=== PATIENT | female | born 1960 | race Caucasian/White ===

== ENCOUNTER 2018-11-09 14:53 | Day surgery (SDC) | payer OTHER, MEDICARE, SELFPAY ==
[2018-11-08 14:31] VITALS: BMI 34.7
--- NOTE | 2018-11-09 | PATH_ITS ---
[facility] Accession Number: [id number] . 01 Material submitted: . toe - RIGHT 5TH TOE . 01 Diagnosis: Right Fifth Toe, Amputation: Actively inflamed chronic ulcer of skin. Focal woven bone associated with marrow fibrosis and chronic inflammation, suggestive of chronic osteomyelitis. Skin, soft tissue, and bone margins of resection viable. MRV 11/14/2018 1654 Local . 01 Electronically signed: . Ketan Ellsworth MD, Pathologist NPI- [id number] . 01 Gross description: . Received in formalin, labeled right fifth toe, is a resected toe (4.0 cm AP, 2.5 cm ML, 1.5 cm SI). The toenail is present. An ulcerated irregular area (0.6 x 0.5 cm) is identified on the central posterosuperior aspect 0.2 cm from the superior skin and soft tissue resection margin. The surrounding skin is carrillo-white and focally flaky. The underlying bone is partially soft but cannot be sliced all the way through with a scalpel. The bone resection margin is inked purple, the superior skin and soft tissue margin is inked black, and the inferior is orange. Section code: (A1) skin and soft tissue resection margins, claims representative; (A2) bone resection margin en face; (A3) ulcerated irregular area, claims representative; (A4) bone underlying irregular area, claims representative serial sections. Note: The bone sections have been decalcified. ([id number]) /MRV 11/11/2018 1957 Local . 01 Pathologist provided ICD-10: M86.9 . 01 CPT . 397648, 506751 Performed at: [address] [address], [place], [place] [id number] MD Kehinde Villaseñor MD Phone: [phone]
[2018-11-09 15:16] VITALS: BMI 32.8
[2018-11-09 15:31] VITALS: BP 142/94; PULSE 96; RESP 20; TEMP 35.9; O2SAT 96
[2018-11-09] MEDS: LACTATED RINGERS 1,000 ML 42 ML IV (15:45)
--- NOTE | 2018-11-09 15:53 | SUR.PREOP ---
Due to draining wound with bandage did not do chloraprep wash to surgical area.
--- NOTE | 2018-11-09 17:38 | PM.PREOP ---
Pre-operative Note Interval Note History & Physical reviewed/Exam performed by Physician: Yes Changes to H&P: No
--- NOTE | 2018-11-09 17:44 | PM.OP.1 ---
Operative Date/Time/Diagnoses Date of procedure: 11/09/18 Time of procedure: 18:00 Pre-op diagnosis: Osteomyelitis right 5th toe with ulceration Diabetes type 2 Post-op diagnosis: same Procedure & Clinicians Procedure: 1. Right 5th toe amputation through metatarsophalangeal joint Same procedure as scheduled: Yes Indications: The patient is a 57-year-old female with multiple medical comorbidities she has a long history of ulcerative wounds to her right foot starting in March of 2017. She was treated by would be wound care and home health for many months and finally got all of her wounds to heal by about May or June although she did have an MRI at that time that suggested osteomyelitis in the 4th and 5th toes. Significantly 2 weeks ago the patient was in [facility] for bowel obstructions been several weeks ago with IV antibiotics. Following discharge home the patient noticed an acute swelling pain and formation of a ulceration and then Prolene and drainage from her 5th toe on the right foot. This is gotten increasingly worse over the last week and half for so. She saw her primary care doctor who put her on Cipro oral and referred for a foot surgeon orthopedic consultation. New x-rays were taken at the office that show destruction of the PIP joint of the right 5th toe as well as purulence drainage from a dorsal wound that encompasses tissue over most of the proximal phalanx. Due to the extension of the soft tissue involvement and what appears to be periosteal reaction along the proximal phalanx the patient was recommended for amputation of the 5th toe through the MTP joint. We also discussed a partial proximal failed amputation however this has a higher risk of leaving recurrent infection. The patient understands and agrees with the plan. The risks benefits and alternatives to surgery were discussed with the patient in detail. T The risks of surgery include but are not limited to infection, malunion, nonunion, persistence of pain, damage to nerves and blood vessels, posttraumatic arthritis, DVT, PE, cardiopulmonary complications and . The patient expressed a thorough understanding of the risks and benefits of surgery and has elected to proceed. Consent was signed in the office today. Surgeon: Nisreen Shook Click Yes if Unassisted: Yes Anesthesia Type: MAC +/- and Local Operative Notes Findings: Right 5th toe with erythema over the entire toe and down towards the metatarsophalangeal junction. No ascending erythema past this point. There is a fluctuant abscess over the dorsal of the proximal phalanx with purulence expressed. A tennis racquet type incision was taken down centered over the base of the proximal phalanx and the 5th toe was removed in its entirety of note there was some soft bone towards the proximal aspect of the proximal phalanx. This was divided and sent for culture and pathology. Closure Type: primary Specimen(s): other (Tissue and bone for culture and pathology) Estimated Blood Loss (mL): 5 Blood products transfused: none Tourniquet time (min): 0 Procedure in detail: Patient was seen in the preoperative area the site of surgery was marked and informed consent confirmed. The patient was then brought back to the operating room by the anesthesia team and placed supine on the table. All bony prominences were well padded. A nonsterile calf tourniquet was placed but not elevated. The right lower extremity was prepped and draped in the standard sterile fashion. Formal time-out procedure was performed confirming the patient's side and site of surgery and administration of antibiotics. Attention was turned to the right foot the right 5th toe was erythematous with a draining ulceration over the proximal phalanx. Mini fluoroscopy was brought in and the location of the ulceration did correspond to the base of the proximal phalanx fairly proximal to the bony destruction therefore decision was made to go ahead with the MTP disarticulation for the best chance of eradicating the infection. The tourniquet was not inflated. Tennis racquet incision was drawn out over the 5th toe. This was then incised through the skin and soft tissue sharply with the knife down to the level of the bone. The proximal phalanx was then freed up proximally and the entire toe specimen was removed and then divided for culture and pathology. The PIP joint and distal proximal phalanx bone was destroyed and soft as well as some softening more proximally and the proximal phalanx as well. Next attention was turned to the wound this time this was irrigated with saline with antibiotic Gent mixed and followed by plain saline. Gloves were changed and new instruments were used to cut the extensor and flexor tendons short allow these to retract as well as a cut and cauterized the neurovascular bundles. The metatarsal head was inspected and was intact. At this point 3 0 PDS suture was used for deep closure followed by 3 O nylon in the skin. The wound closed up nicely. Approximately 16 cc of 0.25% Marcaine with epinephrine were used for local anesthesia. A dressing was placed with Xeroform gauze Kerlix and a Coban wrap and the patient was placed into a postoperative shoe. The drapes removed and the patient was woken from anesthesia and taken to recovery room in good condition. There no immediate complications in this procedure. Complications: none Post-operative Condition: stable Disposition: PACU Plan for aftercare: Patient will be flatfoot or heel weight-bearing in the postoperative shoe on the right side. She will elevate and offload as much as possible to help with her healing. Discussed the importance of glucose control to optimize healing. Additionally the patient will be on oral Cipro and this may be tailored depending on her intraoperative cultures but there is no signs of persistent infection or abscess at the amputation margin.
[2018-11-09] MEDS: CEFAZOLIN 2 GM/100 ML FROZ.PIGGY IV (18:06)
--- NOTE | 2018-11-09 18:32 | SUR.OPER ---
Supine on padded OR bed, head on pillow, arms secured on padded arm boards at <90 degrees abduction, legs uncrossed, safety belt at thigh, tape over blanket over lower left leg, gel bump under right leg and leg draped free.
[2018-11-09] MEDS: SODIUM CHLORIDE 0.9% 1,000 ML, GENTAMICIN 80 MG IRR (18:45)
[2018-11-09] MEDS: BUPIVACAINE 0.25% W/ EPI 30 ML VIAL INJ (18:46)
[2018-11-09 18:59] VITALS: BP 115/72; PULSE 80; RESP 16; TEMP 36.3; O2SAT 97
[2018-11-09 19:04] VITALS: BP 116/75; PULSE 83; RESP 12; O2SAT 97
[2018-11-09 19:10] VITALS: BP 123/7; PULSE 84; RESP 13; O2SAT 97
[2018-11-09 19:14] VITALS: BP 148/83; PULSE 83; RESP 17; TEMP 36.4; O2SAT 97
[2018-11-09 19:47] VITALS: BP 122/80; PULSE 80; RESP 16; TEMP 36.7; O2SAT 97
--- NOTE | 2018-11-09 20:05 | SUR.PHASEII ---
brought in, d/c instructions discussed with both and pt, both voiced an understanding. R foot and boot remained c/d/i. Pt dressed and left when ready and left in stable condition.
== END 2018-11-09 19:50 | disposition home or self-care (01) ==
PROVIDERS: Visit Provider Orthopaedic Surgery Foot and Ankle Surgery
PROC: (CPT 28825; principal; 2018-11-09 17:00)
DX: E11.621 Type 2 diabetes mellitus with foot ulcer (principal); E11.69 Type 2 diabetes mellitus with other specified complication; M86.171 Other acute osteomyelitis, right ankle and foot; Z79.84 Long term (current) use of oral hypoglycemic drugs; F41.9 Anxiety disorder, unspecified; I10 Essential (primary) hypertension; F32.9 Major depressive disorder, single episode, unspecified
CPT/HCPCS: 28825; 87070; 87075; 87077; 87147; 87176; 87186; 87205; J0690; J2250; J2405; J2704; J3010